=== PATIENT | male | born 1965 | race Caucasian/White ===

== ENCOUNTER 2020-08-09 21:32 | Emergency (ER) | payer OTHER, SELFPAY ==
--- NOTE | ~2020-08-09 | XR_ITS ---
EXAMINATION: XR chest 1V portable DATE: 08/09/2020 22:14 INDICATION: Midsternal chest pain. Tingling in the left hand. TECHNIQUE: frontal view of the chest was obtained. COMPARISON: Chest radiograph dated 02/07/2017 FINDINGS: The lungs remain clear with no focal airspace opacities, pulmonary edema, pleural effusion or pneumot horax. The cardiomediastinal silhouette is normal. Visualized bones and soft tissues are unremarkable . IMPRESSION: 1. No acute cardiopulmonary disease. 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
[2020-08-09 21:34] VITALS: BP 188/85; PULSE 94; RESP 20; TEMP 36.6; O2SAT 100
--- NOTE | 2020-08-09 22:04 | ECG_ITS ---
Measurements Intervals [place] Rate: 103 P: 69 OK: 168 QRS: 81 QRSD: 96 T: 0 QT: 324 QTc: 426 Interpretive Statements SINUS TACHYCARDIA MINIMAL Q WAVES- INFERIOR LEADS NONSPECIFIC ST & T-WAVE ABNORMALITY- ANTEROLAT/INF LEADS BASELINE ARTIFACT- I, V4 BORDERLINE ECG Electronically Signed On 08-10-2020 6:50:43 [employer] by Henry Maddox D.O.
[2020-08-09] MEDS: ASPIRIN 81 MG CHEWABLE TABLET 324 MG PO (22:38)
[2020-08-09 22:42] LABS: Basophils Absolute Auto 0.1 K/mm3 (0.0-0.1); Basophils Percent Auto 0.6 % (0.2-1.2); Eosinophils Absolute Auto 0.1 K/mm3 (0-0.3); Eosinophils Percent Auto 1.4 % (0-4.4); Hematocrit 43.1 % (42.0-52.0); Hemoglobin 14.5 g/dL (14.0-18.0); Immature Granulocyte Absolute 0.03 K/mm3 (0.00-0.031); Immature Granulocyte Percent A 0.3 % (0-0.5); Lymphocytes Absolute Auto 3.96 K/mm3 (0.9-3.2); Lymphocytes Percent Auto 45.3 % (18.3-44.2); Mean Corpuscular HGB Conc 33.6 g/dl (32-36); Mean Corpuscular Hemoglobin 30.1 pg (26-34); Mean Corpuscular Volume 89.6 fl (80-100); Mean Platelet Volume 11.1 fl (7.4-10.4); Monocytes Absolute Auto 0.7 K/mm3 (0.1-0.6); Monocytes Percent Auto 8.2 % (2.6-8.5); Neutrophils Absolute Auto 3.9 K/mm3 (1.3-6.7); Neutrophils Percent Auto 44.2 % (45.5-73.1); Platelet Count Result 205 k/mm3 (150-375); Red Blood Count 4.81 M/mm3 (4.6-6.20); Red Cell Distribution Width 12.2 % (11.5-14.5); White Blood Count 8.8 K/mm3 (4.5-10.0)
[2020-08-09 22:45] LABS: Alanine Aminotransferase 40 U/L (4-50); Alkaline Phosphatase 58 U/L (38-126); Anion Gap 10 mmol/L (8-16); Aspartate Amino Transferase 26 U/L (17-59); Bilirubin,Total 0.7 mg/dL (0.2-1.3); Blood Urea Nitrogen 13 mg/dL (9-20); Calcium 10.3 mg/dL (8.4-10.2); Carbon Dioxide 30 mmol/L (22-30); Chloride 100 mmol/L (98-107); Estimated CRCL calculation 103 ml/min; Estimated Glomerular Filt Rate > 60; Glucose 111 mg/dL (75-110); Potassium 3.2 mmol/L (3.4-5.0); Sodium 140 mmol/L (137-145)
[2020-08-09 22:54] LABS: NT Pro B Type Natriuretic Pept 25 PG/ML (5-100)
[2020-08-09 22:57] LABS: Troponin I < 0.012 ng/mL (0.000-0.034)
[2020-08-09 23:19] LABS: Add Urine Microscopic? YES; Appearance Urine Clear (Clear); Bilirubin Urine Negative (Negative); Blood Urine Negative (Negative); Color Urine Yellow (Yellow); Glucose Urine UA Negative (Negative); Ketones Urine 1+ mg/dL (Negative); Leukocyte Esterase Ur Negative LEU/UL (Negative); Mucus Urine Rare /lpf; Nitrate Urine Negative (Negative); Protein Urine Negative (Negative); RBC Urine 0-2 /hpf (0-2); Specific Grav Ur 1.011 (1.001-1.035); Urobilinogen Urine Negative mg/dL (<2.0); WBC Urine 0-3 /hpf
[2020-08-09 23:20] VITALS: BP 133/82; PULSE 86; RESP 15; O2SAT 100
[2020-08-09] MEDS: POTASSIUM CHLORIDE 20 MEQ TABLET 40 MEQ PO (23:20)
--- NOTE | 2020-08-09 23:55 | ED.GENADULT ---
HPI - General Adult General Chief complaint: Recheck/Abnormal Lab/Rx Stated complaint: elevated blood pressure Time Seen by Provider: 08/09/20 21:56 History of Present Illness HPI narrative: Patient is a 54-year-old gentleman who presents the emergency department with chief complaint of hypertension. Patient states that he has history of hypertension states that this evening he felt a little strange feeling in his left upper extremity but had no chest pain or shortness of breath patient states that he checked his blood pressure and it was elevated. The patient reports that it continued to be elevated even though he was having no shortness of breath no chest pain or focal neurological deficit. Patient states that has been trying to go off of his blood pressure medicines Related Data Allergies Allergy/AdvReac Type Severity Reaction Status Date / Time No Known Allergies Allergy Unverified 11/08/13 14:07 Review of Systems Review of Systems: Narrative: A 10 system review of systems was completed on the patient and is negative except for what is stated in the HPI. Nursing and ancillary documentation was reviewed. PMFSH Comments Patient has past medical history significant for hypertension Social history the patient denies illicit drug use Exam Narrative: Exam Narrative: GENERAL: Well-appearing, well-nourished, and in no acute distress. HEAD: Normocephalic, atraumatic. EYES: PERRLA and EOMI. ENT: Nares clear, no rhinorrhea or epistaxis. Mucous membranes moist. NECK: Supple. CHEST: Clear to auscultation. No respiratory distress. HEART: Regular rate and rhythm. No murmur heard. Normal peripheral pulses. ABDOMEN: Soft, nontender, nondistended, normal active bowel sounds. EXTREMITIES: Normal range of motion. No edema. SKIN: Warm, dry, no rash. NEURO: No focal deficits. Alert and oriented x3. PSYCH: Normal mood and affect. Course Course Emergency Course: EKG is sinus rhythm with a rate of [address] elevation or ST depression Vital Signs Vital signs: Vital Signs Temperature 36.6 C 08/09/20 21:34 Pulse Rate 94 08/09/20 21:34 Respiratory Rate 20 08/09/20 21:34 Blood Pressure 188/85 H 08/09/20 21:34 Pulse Oximetry 100 08/09/20 21:34 Temperature 36.6 C 08/09/20 21:34 Pulse Rate 86 08/09/20 23:20 Respiratory Rate 15 08/09/20 23:20 Blood Pressure 133/82 08/09/20 23:20 Pulse Oximetry 100 08/09/20 23:20 Medical Decision Making Vital Signs Vital Signs: Vital Signs Temperature 36.6 C 08/09/20 21:34 Pulse Rate 94 08/09/20 21:34 Respiratory Rate 20 08/09/20 21:34 Blood Pressure 188/85 H 08/09/20 21:34 Pulse Oximetry 100 08/09/20 21:34 Temperature 36.6 C 08/09/20 21:34 Pulse Rate 86 08/09/20 23:20 Respiratory Rate 15 08/09/20 23:20 Blood Pressure 133/82 08/09/20 23:20 Pulse Oximetry 100 08/09/20 23:20 Lab Data Result diagrams: 08/09/20 22:23 08/09/20 22:23 Labs: Lab Results 08/09/20 08/09/20 08/09/20 Range/Units 22:23 22:23 22:23 WBC 8.8 (4.5-10.0) K/mm3 RBC 4.81 (4.6-6.20) M/mm3 Hgb 14.5 (14.0-18.0) g/dL Hct 43.1 (42.0-52.0) % MCV 89.6 (80-100) fl MCH 30.1 (26-34) pg MCHC 33.6 (32-36) g/dl RDW 12.2 (11.5-14.5) % Plt Count 205 (150-375) k/mm3 MPV 11.1 H (7.4-10.4) fl Immature Gran % (Auto) 0.3 (0-0.5) % Neut % (Auto) 44.2 L (45.5-73.1) % Lymph % (Auto) 45.3 H (18.3-44.2) % [place] % (Auto) 8.2 (2.6-8.5) % Eos % (Auto) 1.4 (0-4.4) % Baso % (Auto) 0.6 (0.2-1.2) % Lymph # (Auto) 3.96 H (0.9-3.2) K/mm3 [place] # (Auto) 0.7 H (0.1-0.6) K/mm3 Eos # (Auto) 0.1 (0-0.3) K/mm3 Baso # (Auto) 0.1 (0.0-0.1) K/mm3 Abs Immat Gran (auto) 0.03 (0.00-0.031) K/mm3 Absolute Neuts (auto) 3.9 (1.3-6.7) K/mm3 Absolute Nucleated RBC 0.0 (0.0-0.012) K/mm3 Nucleated RBC % 0.0 (0.0-0.2) % Sodium 140 (137-145) mmol
[2020-08-10 00:14] VITALS: BP 115/71; PULSE 79; RESP 19; TEMP 36.6; O2SAT 100
== END 2020-08-10 00:15 | disposition home or self-care (01) ==
PROVIDERS: Emergency Provider Emergency Medicine
DX: I10 Essential (primary) hypertension (principal); R00.0 Tachycardia, unspecified; R94.31 Abnormal electrocardiogram [ECG] [EKG]
CPT/HCPCS: 36415; 71045; 80053; 81001; 83880; 84484; 85025; 93005; 99284; A9270